=== PATIENT | female | born 1945 | race Caucasian/White ===

== ENCOUNTER → 2016-09-27 | Outpatient (CLI) | payer MEDICARE, BC | END | disposition home or self-care (01) | LOC: PCVCCLINIC 12:55 | PROVIDERS: ATTEND Internal Medicine Cardiovascular Disease | DX: E78.00 Pure hypercholesterolemia, unspecified (principal); I34.0 Nonrheumatic mitral (valve) insufficiency; R06.00 Dyspnea, unspecified | CPT/HCPCS: 80061; 93005; G0463 ==

== ENCOUNTER → 2017-07-13 | Outpatient (CLI) | payer MEDICARE, BC | END | disposition home or self-care (01) | LOC: PCVCCLINIC 12:36 | DX: I34.0 Nonrheumatic mitral (valve) insufficiency (principal); E78.00 Pure hypercholesterolemia, unspecified; F17.210 Nicotine dependence, cigarettes, uncomplicated; Z79.899 Other long term (current) drug therapy | CPT/HCPCS: 80061; 93005; G0463 ==

== ENCOUNTER → 2018-10-12 | Outpatient (CLI) | payer MEDICARE, BC | END | disposition home or self-care (01) | LOC: PCVCCLINIC 13:00 | PROVIDERS: ATTEND Internal Medicine Cardiovascular Disease | DX: I34.0 Nonrheumatic mitral (valve) insufficiency (principal); E78.00 Pure hypercholesterolemia, unspecified; M25.579 Pain in unspecified ankle and joints of unspecified foot; R06.09 Other forms of dyspnea; F17.210 Nicotine dependence, cigarettes, uncomplicated; Z82.49 Family history of ischemic heart disease and other diseases of the circulatory system | CPT/HCPCS: 36415; 80061; 93005; G0463 ==

== ENCOUNTER → 2018-11-07 | Outpatient (CLI) | payer MEDICARE, BC ==
[~2018-11-07] MED LIST: REGADENOSON 0.4 MG/5 ML DISP.SYRIN. IV ONE
--- NOTE | 2018-11-07 17:30 | PCVCIMAG ---
APPROVED REPORT Study performed: 11/07/2018 08:58:13 EXAM: Comprehensive 2D, Doppler, and color-flow Echocardiogram Patient Location: Echo lab Room #: 3Status: routine BSA: 1.91 HR: 74 bpmBP: 138/84 mmHg Rhythm: NSR Other Information Study Quality: Adequate Risk Factors: Cardiac Risk Factors: Smoking, Hyperlipidemia, FHX of CAD Indications Pre-Op Mitral Valve Disease Dyspnea 2D Dimensions IVSd: 8.80 (7-11mm)LVOT Diam: 18.76 (18-24mm) LVDd: 45.62 mm PWd: 7.71 (7-11mm) LVDs: 26.32 (25-40mm) Left Atrium: 27.10 (27-40mm) Aortic Root: 23.39 mm LV Single Plane 4CH: 59.04 % LV Single Plane 2CH: 56.89 % Biplane EF: 57.8 % Volumes Left Atrial Volume (Systole) Single Plane 4CH: 41.71 mLSingle Plane 2CH: 42.94 mL Biplane LA Volume: 46.00 mLLA ESV Index: 24.00 mL/m2 Aortic Valve AoV Peak Rogerio.: 1.62 m/s AO Peak Gr.: 10.83 mmHgLVOT Max P.88 mmHg LVOT Max V: 0.85 m/s DESTINY Vmax: 1.45 cm2 Mitral Valve E/A Ratio: 1.0 MV Decel. Time: 180.36 ms MV E Max Rogerio.: 0.84 m/s MV A Rogerio.: 0.85 m/s IVRT: 65.74 ms TDI E/Lateral E': 10.50E/Medial E': 10.50 Medial E' Rogerio.: 0.08 m/s Lateral E' Rogerio.: 0.08 m/s Pulmonary Valve PV Peak Rogerio.: 0.97 m/sPV Peak Gr.: 3.80 mmHg Pulmonary Vein P Vein S: 0.65 m/sP Vein A: 0.35 m/s P Vein D: 0.44 m/sP Vein A Dur.: 117.6 msec P Vein S/D Ratio: 1.48 Tricuspid Valve TR Peak Rogerio.: 2.69 m/s TR Peak Gr.: 29.01 mmHg TV Vmax: 0.73 m/sPA Pressure: 36.00 mmHg Left Ventricle The left ventricle is normal size. There is normal LV segmental wall motion. There is normal left ventricular wall thickness. Left ventricular systolic function is normal. The left ventricular ejection fraction is within the normal range. LVEF is 55-60%. The left ventricular diastolic function is normal. Right Ventricle The right ventricle is normal size. The right ventricular systolic function is normal. Atria The left atrium size is normal. The right atrium size is normal. Aortic Valve Aortic valve is trileaflet. The aortic valve is normal in structure and function. No aortic regurgitation is present. There is no aortic valvular stenosis. Mitral Valve The mitral valve is normal in structure. There is no mitral valve regurgitation noted. No evidence of mitral valve stenosis. Tricuspid Valve The tricuspid valve is normal in structure. Mild tricuspid regurgitation with a PA pressure of 36 mmHg. Pulmonic Valve The pulmonary valve is normal in structure. There is no pulmonic valvular regurgitation. Great Vessels The aortic root is normal in size. Ascending aorta is not well visualized. Aortic arch is normal in caliber. IVC is normal in size and collapses >50% with inspiration. Pericardium There is no pericardial effusion. There is no pleural effusion. <Conclusion> The left ventricle is normal size. LVEF is 55-60%. The right ventricle is normal size. The left atrium size is normal. Aortic valve is trileaflet. The aortic valve is normal in structure and function. There is no aortic valvular stenosis. There is no mitral valve regurgitation noted. Mild tricuspid regurgitation with a PA pressure of 36 mmHg. The aortic root is normal in size. There is no pericardial effusion.
--- NOTE | 2018-11-07 17:31 | PCVCIMAG ---
APPROVED REPORT Imaging Protocol: Rest Tc-99m/Stress Tc-99m 1 day Study performed: 11/07/2018 11:10:17 Indication: Dyspnea, Pre-Operative CV evaluation, Mitral Valve Disease Patient Location: Out-Patient Stress Nurse: Catalina Mohamud RN, Lissett Ball RN MA Tech:KEIRA Nava Ht: 5 ft 2 in Wt: 200 lbs BSA: 1.91 m2 HR: 80 bpm BP: 130/60 mmHg BMI: 36.5 Medical History Medical History: Hyperlipidemia, Current Smoker Medications: Atorvastatin, Prilosec Allergies: PCN, Cipro, Morphine Cardiac Risk Factors: Age, FHX of CAD Pretest Chest Pain Characteristics: No chest pain Exercise History: Sedentary Resting Data Rest SPECT myocardial perfusion imaging was performed in supine position 45 minutes following the intravenous injection of 14.5 mCi of Tc-99m Sestamibi. Time of rest injection: 0945 Administration Route: IV Pharmacologic Stress Pharmacologic stress test was performed by injecting Regadenoson 0.4 mg IV push over 10-15 seconds immediately followed by the intravenous injection of 41.5 mCi of Tc-99m Sestamibi. Time of stress injection: 1145 Date: 11/07/2018 Administration Route: IV Gated Stress SPECT was performed 45 minutes after stress injection. The images were gated to evaluate regional wall motion and calculate left ventricular ejection fraction. Stress Test Details Stress Test: Pharmacologic stress testing performed using 0.4 mg of regadenoson per 5 mL given IV over 10 seconds. Reason for pharmacologic stress test: pending ankle surgery. HRMax Heart Rate (APMHR): 150 bpm Resting HR: 80 bpmTarget HR (85% APMHR): 127 bpm Max HR Achieved: 103 bpm % of APMHR: 68 Recovery HR: 100 bpm BP Resting BP: 130/60 mmHg Max BP: 131/61 mmHg Recovery BP: 145/68 mmHg ECG Resting ECG: Sinus Rhythm Stress ECG: Sinus Tachycardia Arrhythmia: None Recovery ECG: Sinus Rhythm Clinical Reason for Termination: Completed protocol Stress Symptoms: Dyspnea Exercise duration: 0 min 55 sec Symptoms resolved during recovery. Stress ECG Conclusion ECG: Non-ischemic Study Quality Study: Good Study Data Post stress, the left ventricular ejection was 78%.. SSS: 0 SRS: 6 SDS: 0 TID = 1.05. Perfusion No evidence of stress induced ischemia or prior myocardial infarction. Wall Motion Normal left ventricular size and function with no regional wall motion abnormalities. Nuclear Conclusion No evidence of stress induced ischemia or prior myocardial infarction. Normal left ventricular size and function with no regional wall motion abnormalities. Post stress, the left ventricular ejection was 78%. No change since prior study dated December 2016. Interpreted by: Wero Barillas MD Electronically Approved: 11/07/2018 13:51:20 <Conclusion> ECG: Non-ischemic
== END | disposition home or self-care (01) ==
LOC: PCVCIMAG 08:47
PROVIDERS: ATTEND Internal Medicine Cardiovascular Disease
DX: Z01.810 Encounter for preprocedural cardiovascular examination (principal); I07.1 Rheumatic tricuspid insufficiency; E78.5 Hyperlipidemia, unspecified; F17.200 Nicotine dependence, unspecified, uncomplicated; Z82.49 Family history of ischemic heart disease and other diseases of the circulatory system
CPT/HCPCS: 78452; 93017; 93306; A9500; J2785